=== PATIENT | female | born 1960 | race African-American/Black ===

== ENCOUNTER 2017-12-14 08:00 | Outpatient (CLI) | payer BC | END 2017-12-14 10:35 | disposition home or self-care (01) | LOC: D.MAMMO 08:00 | DX: Z12.31 Encounter for screening mammogram for malignant neoplasm of breast (principal) ==

== ENCOUNTER 2018-11-28 08:00 | Outpatient (CLI) | payer BC | END 2018-11-28 23:59 | disposition home or self-care (01) | LOC: D.MAMMO 08:00 | PROVIDERS: ATTEND Family Medicine | DX: Z12.31 Encounter for screening mammogram for malignant neoplasm of breast (principal) ==

== ENCOUNTER 2020-08-13 10:15 | Outpatient (CLI) | payer BC | END 2020-08-13 23:59 | disposition home or self-care (01) | LOC: D.MAMMO 10:15 | PROVIDERS: ATTEND Family Medicine | DX: Z12.31 Encounter for screening mammogram for malignant neoplasm of breast (principal) ==